=== PATIENT | female | born 1950 | race Caucasian/White ===

== ENCOUNTER → 2017-11-28 | Outpatient (CLI) | payer MEDICARE, OTHER ==
[~2017-11-28] MED LIST: ASPI-715 PO; CALC500T6 PO; CHOL100058 PO; CHOLESTEROL MED?; ESCI10TA8 PO; ESCI20TA38 PO; FENO134C5 PO; GEM600 PO; LEV125 PO; MET4 PO; OMEG-36 PO; OMEP-125 PO; OMEP-218 PO; OMEP40CA45 PO; PROP10TA58 PO; THEA25PO MC; TRAZ-133 PO; TRAZ-156 PO; VALE445C4 PO; [UNRECOGNIZED DRUG - OTHER] PO; [UNRECOGNIZED DRUG - REMARK] PO
--- NOTE | 2017-11-28 14:45 | RADIOLOGY IMAGING REPORT ---
FACILITY: [facility] [place] PATIENT NAME: MELISSA BASS : [id number] MR: [id number] V: [id number] EXAM DATE: ORDERING PHYSICIAN: CLAIRE PASTOR TECHNOLOGIST: Cindy Martínez PROCEDURE:BILATERAL DIGITAL SCREENING MAMMOGRAM WITH CAD ASSISTED INTERPRETATION & 3D TOMOSYNTHESIS COMPARISON:Prior mammograms 11/14/16, 11/13/15, 11/08/14, 11/03/13, 10/28/12, 10/22/11. INDICATIONS:SCREENING FINDINGS: Moderately heterogeneous fibroglandular tissue is seen throughout the breasts. The parenchymal pattern has remained stable allowing for difference in mammographic technique & patient positioning. There is no evidence of malignant appearing mass, malignant appearing calcifications or other secondary sign of malignancy in either breast. DIAGNOSTIC CATEGORY 1--NEGATIVE. RECOMMENDATIONS: ROUTINE MAMMOGRAM AND CLINICAL EVALUATION. IMPRESSION: BIRADS 1: Negative No significant abnormality is seen. Dictated by: Esme Ferro M.D. on 11/28/2017 at 13:58 Transcribed by: ANKUSH on 11/28/2017 at 14:22 Approved by: Esme Ferro M.D. on 11/28/2017 at 14:44 [facility]
== END ==
LOC: MAMO 03:40
PROVIDERS: ATTEND Nurse Practitioner Family
DX: Z12.31 Encounter for screening mammogram for malignant neoplasm of breast (principal)
CPT/HCPCS: 77063; 77067

== ENCOUNTER → 2018-06-04 | Outpatient (CLI) | payer MEDICARE, OTHER ==
[~2018-06-04] MED LIST changes: -TRAZ-156 PO; +TRAZ50TA34 PO
--- NOTE | 2018-06-04 11:54 | RADIOLOGY IMAGING REPORT ---
FACILITY: [facility] - [place] PATIENT NAME: Doreen Paul : 1950 MR: [id number] V: [id number] EXAM DATE: ORDERING PHYSICIAN: CLAIRE PASTOR TECHNOLOGIST: Location: [facility] [place] Patient: Doreen Paul : 1950 Visit/Account:[id number] Date of Sevice: 06/04/2018 CAROTID HISTORY: Hyperlipidemia COMPARISON: June 20, 2009 FINDINGS: Grayscale, duplex and color Doppler interrogation of the extracranial carotid and vertebral arteries was performed bilateral. On the right, peak systolic velocities within the common and internal carotid arteries are 108 and 74 .5 cm/sec respectively. There is a very small amount intimal thickening in the right common carotid artery right carotid bulb. Antegrade flow within the common, internal and external carotid arteries as well as vertebral artery. ICA/CCA ratio 1. On the left, peak systolic velocities within the common and internal carotid arteries are 124 and 86 cm/sec respectively. There is very mild intimal thickening left common carotid artery left carotid b ulb. Antegrade flow within the common, internal and external carotid arteries as well as vertebral a rtery. ICA/CCA ratio 0.8. IMPRESSION: Very mild intimal thickening in the common carotid arteries and carotid bulbs although no hemodynamic ally significant lesions identified Velocity criteria are extrapolated from diameter data as defined by the Society of Radiologists in Ul trasound Consensus Conference Radiology 2003; 229;340-346 Report Dictated By: Esme Ferro MD at 06/04/2018 11:48 AM Report E-Signed By: Esme Ferro MD at 06/04/2018 11:50 AM WSN:[id number]
== END ==
LOC: US 02:26
PROVIDERS: ATTEND Nurse Practitioner Family
DX: E78.5 Hyperlipidemia, unspecified (principal)
CPT/HCPCS: 93880

== ENCOUNTER → 2018-11-02 | Outpatient (CLI) | payer MEDICARE, OTHER | LOC: US 00:21 | PROVIDERS: ATTEND Nurse Practitioner Family | DX: R01.1 Cardiac murmur, unspecified (principal); R06.02 Shortness of breath | CPT/HCPCS: 93306 ==

== ENCOUNTER 2018-12-14 19:46 | Inpatient (IN) | payer MEDICARE, OTHER ==
[~2018-12-14] VITALS: Ht 160 cm; Wt 68.7 kg
[~2018-12-14 19:46] MED LIST changes: -HYDR-2966 PO; -LISI20TA29 PO
[2018-12-14] MEDS ORDERED: HYDR-2966 PO (19:56)
--- NOTE | 2018-12-14 19:56 | ER Report ---
History and Physical Time Seen By MD: 19:56 Hx. of Stated Complaint: SENT OVER BY PCP FOR HYPONATREMIA. PT STATES SHE FEELS DIZZY, NAUSEATE HPI/ROS CHIEF COMPLAINT: Hyponatremia HISTORY OF PRESENT ILLNESS: 68-year-old female patient presents to emergency room with complaint of hyponatremia. Patient states that she started not feeling well this afternoon. She states she checked her blood pressure. At that time she was 170 180/90. Patient states she felt funny, was nauseated and vomited 1. At that time she did go to an urgent care for evaluation. While there they gave her some Zofran which seemed to help. She was able to feel little bit better. They did check a CMP. They found that her sodium was 125. At that time they felt that she needed to have a further evaluation and referred her to the emergency room. Provider was concerned about some tingling to her fingers. Patient states that she is recently started on hydrochlorothiazide for blood pressure. Patient has not taken any other medications. Patient denies having a headache. She states she does feel little lightheaded when she stands up. REVIEW OF SYSTEMS: Respiratory: No cough, no dyspnea. Cardiovascular: No chest pain, no palpitations. Gastrointestinal: As noted above. Musculoskeletal: No back pain. Allergies: Uncoded Allergies: STATINS (Allergy, Mild, FEVER, 10/19/10) GENERALIZED ACHING AND CHEST PAIN. Home Meds Reported Medications Hydrochlorothiazide (HYDROCHLOROTHIAZIDE) 25 Mg Tablet, 1 TAB PO QDAY, TAB 12/14/18 [premier digest] No Conflict Check, 1 TAB PO qdinner 08/15/17 Valerian Root (VALERIAN ROOT) 445 Mg Capsule, 445 MG PO QDAY, CAPSULE 08/04/17 [place]-3 Fatty Acids/Fish Oil (OMEGA 3 FISH OIL SOFTGEL) 1 Each Capsule.dr, 1 EACH PO QDAY 08/04/17 Cholecalciferol (Vitamin D3) (VITAMIN D) Unknown Strength Capsule, 5000 MG PO QDAY, CAPSULE 08/04/17 Theanine (L-THEANINE) 25 Gm Powder, 25 GM MC QDAY 08/04/17 Calcium Carbonate (CALCIUM) 500 Mg Tablet, 500 MG PO QDAY 08/04/17 Propranolol Hcl (PROPRANOLOL HCL) 10 Mg Tablet, 10 MG PO TID 08/04/17 Trazodone Hcl (TRAZODONE HCL) 50 Mg Tablet, 0.5 TAB PO QHS 08/04/17 Fenofibrate,Micronized (FENOFIBRATE) 134 Mg Capsule, 134 MG PO QDAY, CAPSULE 08/04/17 Omeprazole (OMEPRAZOLE) 20 Mg Capsule.dr, 1 CAP PO QDAY, CAP 08/04/17 Escitalopram Oxalate (ESCITALOPRAM OXALATE) 10 Mg Tablet, 1 TAB PO QDAY, TAB 08/04/17 Levothyroxine Sodium (LEVOTHYROXINE SODIUM) 0.125 Mg Tab, 0.5 TAB PO QDAY, TAB 08/04/17 Past Medical/Surgical History Patient has a past medical history of hypertension, hyperlipidemia, reflux, hypothyroidism, anxiety. Patient has a surgical history of hysterectomy, cholecystectomy. Patient has a family medical history of CAD. Reviewed Nurses Notes: Yes Hx Smoking: No Smoking Status: Never Smoker Hx Substance Use Disorder: No Hx Alcohol Use: No Constitutional Vital Sign - Last 24 Hours 12/14/18 19:52 Temp 98.3 Pulse 66 Resp 14 B/P (MAP) 182/96 Pulse Ox 95 O2 Delivery Room Air Physical Exam General Appearance: The patient is alert, has no immediate need for airway protection and no current signs of toxicity. Respiratory: Chest is non tender, lungs are clear to auscultation. Cardiac: regular rate and rhythm Gastrointestinal: Abdomen is soft and non tender, no masses, bowel sounds normal. Musculoskeletal: Neck: Neck is supple and non tender. Extremities have full range of motion and are non tender. Skin: No rashes or lesions. DIFFERENTIAL DIAGNOSIS: After history and physical exam differential diagnosis was considered for hyponatremia secondary to diuretic, intracranial hemorrhage, hypertensive emergency, hypertensive urgency. Medical Decision Making Data Points Result Diagram: 12/14/18200912/14/182009 Laboratory Hematology Test 12/14/18 20:10 12/14/18 20:46 Red Blood Count 5.67 M/uL (4.17-5.56) Mean Corpuscular Volume 84.3 fL (80.0-96.0) Mean Corpuscular Hemoglobin 29.6 pg (26.0-33.0) Mean Corpuscular Hemoglobin Concent 35.1 g/dL (32.0-36.0) Red Cell Distribution Width 14.4 % (11.5-14.5) Mean Platelet Volume 7.5 fL (7.2-11.1) Neutrophils (%) (Auto) 76.1 % (39.4-72.5) Lymphocytes (%) (Auto) 13.9 % (17.6-49.6) Monocytes (%) (Auto) 7.4 % (4.1-12.4) Eosinophils (%) (Auto) 0.8 % (0.4-6.7) Basophils (%) (Auto) 1.8 % (0.3-1.4) Nucleated RBC Relative Count (auto) 0.0 /100WBC Neutrophils # (Auto) 7.0 K/uL (2.0-7.4) Lymphocytes # (Auto) 1.3 K/uL (1.3-3.6) Monocytes # (Auto) 0.7 K/uL (0.3-1.0) Eosinophils # (Auto) 0.1 K/uL (0.0-0.5) Basophils # (Auto) 0.2 K/uL (0.0-0.1) Nucleated RBC Absolute Count (auto) 0.00 K/uL Peripheral Blood Smear Yes Y/N Sodium Level 124 mmol/L (137-145) Potassium Level 3.9 mmol/L (3.5-5.0) Chloride Level 87 mmol/L (98-107) Carbon Dioxide Level 26 mmol/L (22-31) Blood Urea Nitrogen 15 mg/dl (7-18) Creatinine 0.80 mg/dl (0.52-1.04) Glomerular Filtration Rate Calc > 60.0 Random Glucose 120 mg/dl (75-110) Calcium Level 9.6 mg/dl (8.4-10.2) Total Bilirubin 0.7 mg/dl (0.2-1.3) Aspartate Amino Transf (AST/SGOT) 43 U/L (0-35) Alanine Aminotransferase (ALT/SGPT) 64 U/L (0-56) Alkaline Phosphatase 129 U/L (0-126) Troponin I < 0.012 ng/ml Total Protein 7.5 g/dl (6.3-8.2) Albumin 4.5 g/dl (3.5-5.0) Urine Color Yellow Urine Clarity Clear Urine pH 7.0 pH (4.8-9.5) Urine Specific [place] 1.012 Urine Protein Negative mg/dL (NEGATIVE) Urine Glucose (UA) Negative mg/dL (NEGATIVE) Urine Ketones Negative mg/dL (NEGATIVE) Urine Blood Negative (NEGATIVE) Urine Nitrite Negative (NEGATIVE) Urine Bilirubin Negative (NEGATIVE) Urine Urobilinogen Negative mg/dL (0.2-1.9) Urine Leukocyte Esterase Trace (NEGATIVE) Urine RBC 1 /HPF (0-2/HPF) Urine WBC 4 /HPF (0-5/HPF) Urine Squamous Epithelial Cells Many /LPF (</=FEW) Urine Bacteria Negative /HPF (NONE-FEW) Urine Mucus None /HPF (NONE-FEW) Chemistry Test 12/14/18 20:10 12/14/18 20:46 White Blood Count 9.2 k/uL (4.5-11.0) Red Blood Count 5.67 M/uL (4.17-5.56) Hemoglobin 16.8 g/dL (12.0-16.0) Hematocrit 47.8 % (34.0-47.0) Mean Corpuscular Volume 84.3 fL (80.0-96.0) Mean Corpuscular Hemoglobin 29.6 pg (26.0-33.0) Mean Corpuscular Hemoglobin Concent 35.1 g/dL (32.0-36.0) Red Cell Distribution Width 14.4 % (11.5-14.5) Platelet Count 288 K/uL (150-450) Mean Platelet Volume 7.5 fL (7.2-11.1) Neutrophils (%) (Auto) 76.1 % (39.4-72.5) Lymphocytes (%) (Auto) 13.9 % (17.6-49.6) Monocytes (%) (Auto) 7.4 % (4.1-12.4) Eosinophils (%) (Auto) 0.8 % (0.4-6.7) Basophils (%) (Auto) 1.8 % (0.3-1.4) Nucleated RBC Relative Count (auto) 0.0 /100WBC Neutrophils # (Auto) 7.0 K/uL (2.0-7.4) Lymphocytes # (Auto) 1.3 K/uL (1.3-3.6) Monocytes # (Auto) 0.7 K/uL (0.3-1.0) Eosinophils # (Auto) 0.1 K/uL (0.0-0.5) Basophils # (Auto) 0.2 K/uL (0.0-0.1) Nucleated RBC Absolute Count (auto) 0.00 K/uL Peripheral Blood Smear Yes Y/N Glomerular Filtration Rate Calc > 60.0 Calcium Level 9.6 mg/dl (8.4-10.2) Total Bilirubin 0.7 mg/dl (0.2-1.3) Aspartate Amino Transf (AST/SGOT) 43 U/L (0-35) Alanine Aminotransferase (ALT/SGPT) 64 U/L (0-56) Alkaline Phosphatase 129 U/L (0-126) Troponin I < 0.012 ng/ml Total Protein 7.5 g/dl (6.3-8.2) Albumin 4.5 g/dl (3.5-5.0) Urine Color Yellow Urine Clarity Clear Urine pH 7.0 pH (4.8-9.5) Urine Specific [place] 1.012 Urine Protein Negative mg/dL (NEGATIVE) Urine Glucose (UA) Negative mg/dL (NEGATIVE) Urine Ketones Negative mg/dL (NEGATIVE) Urine Blood Negative (NEGATIVE) Urine Nitrite Negative (NEGATIVE) Urine Bilirubin Negative (NEGATIVE) Urine Urobilinogen Negative mg/dL (0.2-1.9) Urine Leukocyte Esterase Trace (NEGATIVE) Urine RBC 1 /HPF (0-2/HPF) Urine WBC 4 /HPF (0-5/HPF) Urine Squamous Epithelial Cells Many /LPF (</=FEW) Urine Bacteria Negative /HPF (NONE-FEW) Urine Mucus None /HPF (NONE-FEW) Urinalysis Test 12/14/18 20:46 Urine Color Yellow Urine Clarity Clear Urine pH 7.0 pH (4.8-9.5) Urine Specific [place] 1.012 Urine Protein Negative mg/dL (NEGATIVE) Urine Glucose (UA) Negative mg/dL (NEGATIVE) Urine Ketones Negative mg/dL (NEGATIVE) Urine Blood Negative (NEGATIVE) Urine Nitrite Negative (NEGATIVE) Urine Bilirubin Negative (NEGATIVE) Urine Urobilinogen Negative mg/dL (0.2-1.9) Urine Leukocyte Esterase Trace (NEGATIVE) Urine RBC 1 /HPF (0-2/HPF) Urine WBC 4 /HPF (0-5/HPF) Urine Squamous Epithelial Cells Many /LPF (</=FEW) Urine Bacteria Negative /HPF (NONE-FEW) Urine Mucus None /HPF (NONE-FEW) EKG/Imaging EKG Interpretation 12 lead EKG: Rhythm: Sinus bradycardia with ventricular rate of 57 bpm [place]: normal QRS: normal ST segments: normal Imaging Examination: CHEST PA LAT Comparison: 10/19/2010 History: Hypertension. Lightheadedness. Findings: Cardiac and hilar contour size is within normal limits. No consolidation, nodule, or peribronchial inflammation. No pneumothorax, edema, or effusion. Visualized bowel gas pattern is unremarkable. Osseous structures are intact. IMPRESSION: No findings of acute cardiopulmonary disease. Report Dictated By: Dylan Weller MD at 12/14/2018 9:20 PM Report E-Signed By: Dylan Weller MD at 12/14/2018 9:22 PM EXAMINATION: CT head without IV contrast HISTORY: Lightheaded. Hypertension. TECHNIQUE: Axial CT images of the head were obtained from the vertex to the skull base without IV contrast, with coronal and sagittal 2D reconstructed images. One of the following dose optimization techniques was utilized in the performance of this exam: Automated exposure control; adjustment of the mA and/or kV according to the patient's size; or use of an iterative reconstruction technique. Specific details can be referenced in the facility's radiology CT exam operational policy. COMPARISON: 10/19/2010. FINDINGS: There is mild age-appropriate parenchymal volume loss, with slight patchy low attenuation in the deep white matter, compatible with chronic small vessel ischemic change. Intracranial vascular calcifications. No CT evidence of intracranial hemorrhage, mass lesion, or acute infarct. No midline shift or extra-axial fluid collections. Epstein-white differentiation is maintained. The calvarium is intact. The partially visualized paranasal sinuses and mastoid air cells are unopacified. IMPRESSION: No CT evidence of acute intracranial pathology. Report Dictated By: Juan Antonio Egan MD at 12/14/2018 8:59 PM Report E-Signed By: Juan Antonio Egan MD at 12/14/2018 9:01 PM ED Course/Re-evaluation ED Course Patient is a medical exam room, history and physical were obtained. Differential diagnoses were considered. On examination lungs are clear, heart is regular, abdomen is soft and nontender. Patient was alert oriented 4, she did have one episode of emesis upon arrival to the emergency room. IV was started, patient received a liter of normal saline, a CBC, CMP, urinalysis, EKG, troponin were checked. Lab results were unremarkable excluding the low sodium of 124. Troponin was negative. EKG showed a sinus bradycardia. CT scan of the head and chest x- ray were done. The imaging results were negative. At that time we rechecked her blood pressure her blood pressure come down to 135/84. As result of that there is no need to give her any antihypertensive medications. Is my believe this time the patient is hyponatremic secondary to her hydrochlorothiazide. I discussed the case with Dr. Dowell, hospitalist, who agreed to accept the patient for admission. I discussed this with the patient and her and they verbalized understanding and agreement with plan. Decision to Disposition Date: Dec 14, 2018 Decision to Disposition Time: 21:44 Depart Departure Latest Vital Signs Vital Signs Date Time Temp Pulse Resp B/P (MAP) Pulse Ox O2 Delivery O2 Flow Rate FiO2 12/14/18 19:52 98.3 66 14 182/96 95 Room Air Impression: Primary Impression: Hyponatremia Condition: Condition Unchanged Disposition: Admitted from ER Referrals: CLAIRE PASTOR APRN (PCP) ÁNGEL ALCANTARA Dec 14, 2018 19:56
[2018-12-14] MEDS ORDERED: NS(*) 0.9% 1000 ML BAG 1,000 ML IV ONE (20:03)
[2018-12-14] MEDS ORDERED: ONDANSETRON 4 MG/2 ML VIAL IVP ONE (20:05)
--- NOTE | 2018-12-14 20:17 | EKG ---
FACILITY: [facility] PATIENT NAME: MELISSA BASS : [id number] MR: [id number] V: [id number] EXAM DATE: ORDERING PHYSICIAN: ÁNGEL ALCANTARA TECHNOLOGIST: FERNANDO Test Reason : HIGH BP Blood Pressure : / mmHG Vent. Rate : 057 BPM Atrial Rate : 057 BPM P-R Int : 194 ms QRS Dur : 088 ms QT Int : 478 ms P-R-T Axes : 063 070 054 degrees QTc Int : 465 ms Sinus bradycardia Otherwise normal ECG No previous ECGs available Confirmed by Jim Casas ([id number]) on 12/15/2018 7:33:31 AM Referred By: Confirmed By:Jim Jenkins
[2018-12-14 20:19] LABS: PLATELET COUNT, AUTOMATED 288 K/uL (150-450)
--- NOTE | 2018-12-14 21:05 | RADIOLOGY IMAGING REPORT ---
FACILITY: [facility] PATIENT NAME: Doreen Paul : 1950 MR: [id number] V: [id number] EXAM DATE: ORDERING PHYSICIAN: ÁNGEL ALCANTARA TECHNOLOGIST: Location: [facility] Patient: Doreen Paul : 1950 Visit/Account:[id number] Date of Sevice: 12/14/2018 EXAMINATION: CT head without IV contrast HISTORY: Lightheaded. Hypertension. TECHNIQUE: Axial CT images of the head were obtained from the vertex to the skull base without IV c ontrast, with coronal and sagittal 2D reconstructed images. One of the following dose optimization techniques was utilized in the performance of this exam: Autom ated exposure control; adjustment of the mA and/or kV according to the patient's size; or use of an i terative reconstruction technique. Specific details can be referenced in the facility's radiology C T exam operational policy. COMPARISON: 10/19/2010. FINDINGS: There is mild age-appropriate parenchymal volume loss, with slight patchy low attenuation in the deep white matter, compatible with chronic small vessel ischemic change. Intracranial vascular calcificat ions. No CT evidence of intracranial hemorrhage, mass lesion, or acute infarct. No midline shift or extra-a xial fluid collections. Epstein-white differentiation is maintained. The calvarium is intact. The partially visualized paranasal sinuses and mastoid air cells are unopaci fied. IMPRESSION: No CT evidence of acute intracranial pathology. Report Dictated By: Juan Antonio Egan MD at 12/14/2018 8:59 PM Report E-Signed By: Juan Antonio Egan MD at 12/14/2018 9:01 PM WSN:[id number]
--- NOTE | 2018-12-14 21:25 | RADIOLOGY IMAGING REPORT ---
FACILITY: [facility] PATIENT NAME: Doreen Paul : 1950 MR: [id number] V: [id number] EXAM DATE: ORDERING PHYSICIAN: ÁNGEL ALCANTARA TECHNOLOGIST: Location: [facility] [place] Patient: Doreen Paul : 1950 Visit/Account:[id number] Date of Sevice: 12/14/2018 Examination: CHEST PA LAT Comparison: 10/19/2010 History: Hypertension. Lightheadedness. Findings: Cardiac and hilar contour size is within normal limits. No consolidation, nodule, or peribr onchial inflammation. No pneumothorax, edema, or effusion. Visualized bowel gas pattern is unremarkab le. Osseous structures are intact. IMPRESSION: No findings of acute cardiopulmonary disease. Report Dictated By: Dylan Weller MD at 12/14/2018 9:20 PM Report E-Signed By: Dylan Weller MD at 12/14/2018 9:22 PM WSN:[id number]
[2018-12-14 22:28] VITALS: BP 174/97
[2018-12-14] MEDS ORDERED: NS(*) 0.9% 1000 ML BAG 1,000 ML IV PRN (23:31)
[2018-12-14] MEDS ORDERED: INFLUENZA VIRUS VAC 0.5ML SYR IM ONLY ONE (23:35)
[2018-12-14] MEDS ORDERED: ACETAMINOPHEN 325 MG TAB PO PRN (23:35)
[2018-12-14] MEDS ORDERED: traZODone HCL 50 MG TAB PO PRN (23:35)
[2018-12-14] MEDS ORDERED: FLUSH 10 ML SYR IVP PRN (23:35)
[2018-12-14] MEDS ORDERED: PROMETHAZINE 25 MG/ML 1 ML AMP IVP PRN (23:35)
[2018-12-14] MEDS ORDERED: ONDANSETRON 4 MG/2 ML VIAL IVP PRN (23:35)
--- NOTE | 2018-12-15 00:10 | History & Physical ---
History of Present Illness Chief Complaint nausea History of Present Illness 68F admitted for hyponatremia. PMHx significant for hypothyroidism, HTN. Recently began taking HCTZ for BP. Was not feeling well and BP noted to be elevated at home. She was seen in urgent care and found to have low sodium. Referred to ER where low sodium was confirmed and she was admitted for further management. History Other Past Medical Hx as noted in HPI Home Meds Reported Medications Hydrochlorothiazide (HYDROCHLOROTHIAZIDE) 25 Mg Tablet, 1 TAB PO QDAY, TAB 12/14/18 [premier digest] No Conflict Check, 1 TAB PO qdinner 08/15/17 Valerian Root (VALERIAN ROOT) 445 Mg Capsule, 445 MG PO QDAY, CAPSULE 08/04/17 [place]-3 Fatty Acids/Fish Oil (OMEGA 3 FISH OIL SOFTGEL) 1 Each Capsule.dr, 1 EACH PO QDAY 08/04/17 Cholecalciferol (Vitamin D3) (VITAMIN D) Unknown Strength Capsule, 5000 MG PO QDAY, CAPSULE 08/04/17 Theanine (L-THEANINE) 25 Gm Powder, 25 GM MC QDAY 08/04/17 Calcium Carbonate (CALCIUM) 500 Mg Tablet, 500 MG PO QDAY 08/04/17 Propranolol Hcl (PROPRANOLOL HCL) 10 Mg Tablet, 10 MG PO TID 08/04/17 Trazodone Hcl (TRAZODONE HCL) 50 Mg Tablet, 0.5 TAB PO QHS 08/04/17 Fenofibrate,Micronized (FENOFIBRATE) 134 Mg Capsule, 134 MG PO QDAY, CAPSULE 08/04/17 Omeprazole (OMEPRAZOLE) 20 Mg Capsule.dr, 1 CAP PO QDAY, CAP 08/04/17 Escitalopram Oxalate (ESCITALOPRAM OXALATE) 10 Mg Tablet, 1 TAB PO QDAY, TAB 08/04/17 Levothyroxine Sodium (LEVOTHYROXINE SODIUM) 0.125 Mg Tab, 0.5 TAB PO QDAY, TAB 08/04/17 Allergies: Uncoded Allergies: STATINS (Allergy, Mild, FEVER, 10/19/10) GENERALIZED ACHING AND CHEST PAIN. Patient History: FH: Alzheimers disease MOTHER, , Age:76 FH: hyperlipidemia MOTHER, , Age:76 Hx Smoking: No Smoking Status: Never Smoker Caffeine Intake: Coffee Caffeine/Cups Per Day: 4 Hx Alcohol Use: No Hx Substance Use Disorder: No Social Drug Use: Never Review of Systems Constitutional: No Fever, No Chills Gastrointestinal: Nausea; No Vomiting Exam Vital Signs Vital Signs Date Time Temp Pulse Resp B/P (MAP) Pulse Ox O2 Delivery O2 Flow Rate FiO2 12/14/18 22:45 91 Room Air 12/14/18 22:28 98.1 67 18 174/97 (122) General Appearance: Alert, Awake, No Acute Distress, Afebrile ENT: Normal Cardiovascular: Normal Rhythm & Peripheral Pulses Respiratory: No Respiratory Distress GI: Abd Soft and Non-Tender Musculoskeletal: No Weakness/Pain Extremities: Soft and Non Tender, Warm, Pulses, Perfused, Edema (mild pitting to b/l knees) Medical Decision Making Data Points Result Diagram: 12/14/18200912/14/18 9568 Assessment and Plan Problems: (1) Hyponatremia Status: Acute Assessment & Plan: Secondary to thiazide diuretic. Will stop HCTZ and begin IV NS. Monitor for rise, keep below 8 mEQ in 24 hour period. Will check TSH. (2) Hypertension Assessment & Plan: Continue propranolol, stop HCTZ. (3) Hypothyroid Assessment & Plan: Continue 50 mcg levothyroxine, recheck TSH. Venous Thromboembolism Antithrombotics Is Pt On Any Antithrombotics?: Yes Exam Sepsis Risk: No Definite Risk SIFUENTES CLIVE MAURICIO DO Dec 15, 2018 00:10
[2018-12-15] MEDS ORDERED: NS(*) 0.9% 1000 ML BAG 1,000 ML IV PRN (06:29)
[2018-12-15 07:01] VITALS: BP 162/78
[2018-12-15] MEDS ORDERED: FENOFIBRATE,MICRON 145 MG TAB PO SCH (09:00)
[2018-12-15] MEDS ORDERED: PROPRANOLOL HCL 20 MG TAB PO SCH (09:00)
[2018-12-15] MEDS ORDERED: ENOXAPARIN 40 MG/0.4ML SYR SC SCH (09:00)
[2018-12-15] MEDS ORDERED: ESCITALOPRAM OXALATE 10 MG TAB PO SCH (09:00)
[2018-12-15] MEDS ORDERED: LEVOTHYROXINE SOD 0.125 MG TAB PO SCH (09:00)
[2018-12-15] MEDS ORDERED: CALCIUM OYSTER SHELL 500MG TAB PO SCH (09:00)
[2018-12-15] MEDS ORDERED: PANTOPRAZOLE SOD 20 MG TABEC PO SCH (09:00)
[2018-12-15] MEDS ORDERED: LISINOPRIL 20 MG TAB PO SCH (11:05)
[2018-12-15 11:12] VITALS: BP 158/92
[2018-12-15] MEDS ORDERED: LISI20TA29 PO (12:21)
--- NOTE | 2018-12-15 12:34 | Hospitalist Depart ---
Discharge Summary Reason for Hosp/Final Diag: (1) Hyponatremia Status: Acute Hospital Course & Plan: She presented to Urgent Care with nausea, vomiting and dizziness. She was found to have sodium of 124. She was recently started on HCTZ. HCTZ stopped. She was given NS via IVF. Sodium has been increasing at an appropriate rate. IVF stopped. Sodium has continued to rise. No more nausea or dizziness. She will get a BMP on 12/21. (2) Elevated hemoglobin Status: Acute Hospital Course & Plan: Likely secondary to hemoconcentration. The patient is to get a repeat in a few days. (3) Hypertension Hospital Course & Plan: Continue propranolol, stop HCTZ. Lisinopril increased to 40mg a day from 20mg. BMP in a few days and f/u with PCP in 1-2 weeks. (4) Hypothyroid Hospital Course & Plan: Continue 50 mcg levothyroxine. TSH 4.09. Departure Weight (Pounds): 151 Weight (Ounces): 8.0 Result Diagram: 12/14/18200912/15/181127 Item Value Date Time Sodium Level 124 mmol/L *L 12/14/182009 Sodium Level 125 mmol/L *L 12/14/182251 Sodium Level 128 mmol/L L 12/15/18 0540 Sodium Level 130 mmol/L L 12/15/18 1128 Blood Urea Nitrogen 15 mg/dl 12/14/182009 Blood Urea Nitrogen 14 mg/dl 12/14/182251 Creatinine 0.80 mg/dl 12/14/182009 Creatinine 0.80 mg/dl 12/14/182251 Blood Urea Nitrogen 13 mg/dl 12/15/18 0540 Blood Urea Nitrogen 12 mg/dl 12/15/18 1128 Creatinine 0.80 mg/dl 12/15/18 1128 Creatinine 0.80 mg/dl 12/15/18 0540 Total Bilirubin 0.7 mg/dl 12/14/182009 Aspartate Amino Transf (AST/SGOT) 43 U/L H 12/14/182009 Alanine Aminotransferase (ALT/SGPT) 64 U/L H 12/14/182009 Alkaline Phosphatase 129 U/L H 12/14/182009 Troponin I < 0.012 ng/ml 12/14/182009 Thyroid Stimulating Hormone (TSH) 4.09 uIU/ml 12/15/18 0540 Neutrophils (%) (Auto) 76.1 % H 12/14/182009 Lymphocytes (%) (Auto) 13.9 % L 12/14/182009 Monocytes (%) (Auto) 7.4 % 12/14/182009 Eosinophils (%) (Auto) 0.8 % 12/14/182009 Basophils (%) (Auto) 1.8 % H 12/14/182009 Urine Leukocyte Esterase Trace H 12/14/182045 Urine Leukocyte Esterase Negative 12/15/18 Urine RBC <1 /HPF 12/15/18 Urine WBC <1 /HPF 12/15/18 0000 Urine Squamous Epithelial Cells Few /LPF 12/15/18 0000 Urine Squamous Epithelial Cells Many /LPF H 12/14/182045 Urine WBC 4 /HPF 12/14/182045 Urine RBC 1 /HPF 12/14/182045 Imaging CXR - No findings of acute cardiopulmonary disease. Head CT - No CT evidence of acute intracranial pathology. Condition: Improved Discharge: Home Discharge Instructions Home Meds Active Scripts Lisinopril (LISINOPRIL) 20 Mg Tablet, 40 MG PO QDAY, #30 Prov:CHRISTINE MARSHALL MD 12/15/18 Reported Medications [premier digest] No Conflict Check, 1 TAB PO qdinner 08/15/17 Valerian Root (VALERIAN ROOT) 445 Mg Capsule, 445 MG PO QDAY, CAPSULE 08/04/17 Superior-3 Fatty Acids/Fish Oil (OMEGA 3 FISH OIL SOFTGEL) 1 Each Capsule.dr, 1 EACH PO QDAY 08/04/17 Cholecalciferol (Vitamin D3) (VITAMIN D) Unknown Strength Capsule, 5000 MG PO QDAY, CAPSULE 08/04/17 Theanine (L-THEANINE) 25 Gm Powder, 25 GM MC QDAY 08/04/17 Calcium Carbonate (CALCIUM) 500 Mg Tablet, 500 MG PO QDAY 08/04/17 Propranolol Hcl (PROPRANOLOL HCL) 10 Mg Tablet, 10 MG PO TID 08/04/17 Trazodone Hcl (TRAZODONE HCL) 50 Mg Tablet, 0.5 TAB PO QHS 08/04/17 Fenofibrate,Micronized (FENOFIBRATE) 134 Mg Capsule, 134 MG PO QDAY, CAPSULE 08/04/17 Omeprazole (OMEPRAZOLE) 20 Mg Capsule.dr, 1 CAP PO QDAY, CAP 08/04/17 Escitalopram Oxalate (ESCITALOPRAM OXALATE) 10 Mg Tablet, 1 TAB PO QDAY, TAB 08/04/17 Levothyroxine Sodium (LEVOTHYROXINE SODIUM) 0.125 Mg Tab, 0.5 TAB PO QDAY, TAB 08/04/17 Discontinued Reported Medications Hydrochlorothiazide (HYDROCHLOROTHIAZIDE) 25 Mg Tablet, 1 TAB PO QDAY, TAB 12/14/18 Diet: Regular Activity: As Tolerated Special Instructions: Follow up with your PCP in 1-2 weeks to check your blood pressure BMP/CBC on 12/21 to check sodium, potassium, kidney function and red blood cell count. Copies to: [facility] [employer] ; Venous Thromboembolism Antithrombotics Is Pt On Any Antithrombotics?: Yes CHRISTINE MARSHALL MD Dec 15, 2018 12:34
== END 2018-12-15 13:59 | disposition home or self-care (01) | DRG 641 ==
LOC: ER 20:09 → MED 22:19
PROVIDERS: ADMIT Internal Medicine; ATTEND Internal Medicine
DX: E87.1 Hypo-osmolality and hyponatremia (principal); I10 Essential (primary) hypertension; K21.9 Gastro-esophageal reflux disease without esophagitis; T50.2X5A Adverse effect of carbonic-anhydrase inhibitors, benzothiadiazides and other diuretics, initial encounter; Z90.49 Acquired absence of other specified parts of digestive tract; E78.5 Hyperlipidemia, unspecified; F41.9 Anxiety disorder, unspecified; E03.9 Hypothyroidism, unspecified; Z90.710 Acquired absence of both cervix and uterus
CPT/HCPCS: 36415; 70450; 71046; 81001; 82040; 82247; 82310; 82374; 82435; 82565; 82947; 84075; 84132; 84155; 84295; 84443; 84450; 84460; 84484; 84520; 85025; 93005; 96361; 96374; 99285; J1650; J2405; J7030

== ENCOUNTER → 2018-12-14 | Outpatient (REF) | payer MEDICARE, OTHER ==
[~2018-12-14] MED LIST changes: +HYDR-2966 PO; +LISI20TA29 PO
== END ==
LOC: ZZSTITCHES 18:52
PROVIDERS: ATTEND Physician Assistant
DX: R11.0 Nausea (principal); R42 Dizziness and giddiness; I10 Essential (primary) hypertension
CPT/HCPCS: 82040; 82247; 82310; 82374; 82435; 82565; 82947; 84075; 84132; 84155; 84295; 84450; 84460; 84520